=== PATIENT | female | born 1930 | race Caucasian/White ===

== ENCOUNTER 2017-02-26 12:14 | Observation (INO) | payer MEDICARE ==
[2017-02-26] MEDS ORDERED: SODIUM CHLORIDE 0.9% 1,000 ML IV STA (13:05)
[2017-02-26 13:43] LABS: Basophils # (A) 0.1 k/uL (0-0.2); Basophils % (A) 1 %; CHCM 32.9; Eosinophils # (A) 0.2 k/uL (0-0.7); Eosinophils % (A) 2 %; HCT 42.6 % (34.0-46.0); HDW 1.98; HGB 14.1 gm/dL (11.4-16.0); Luc # (Auto) 0.23; Luc % (Auto) 3; Lymphocytes # (A) 1.7 k/uL (1.0-4.8); Lymphocytes % (A) 19 %; MCH 32.4 pg (25.0-35.0); MCHC 33.2 g/dL (31.0-37.0); MCV 97.6 fL (80.0-100.0); Mean Platelet Volume 6.8; Monocytes # (A) 0.8 k/uL (0-1.0); Monocytes % (A) 9 %; Neutrophils # (A) 5.9 k/uL (1.3-7.7); Neutrophils % (A) 67 %; RBC 4.37 m/uL (3.80-5.40); RDW 13.1 % (11.5-15.5); WBC 8.8 k/uL (3.8-10.6); WBC (Perox) 8.67
[2017-02-26 13:51] LABS: INR 1.1 (<1.1); Partial Thromboplastin Time 23.1 sec (22.0-30.0)
--- NOTE | 2017-02-26 13:52 | XR ---
EXAMINATION TYPE: XR chest 2V DATE OF EXAM: 02/26/2017 COMPARISON: Chest x-ray November 12, 2010. HISTORY: Chest discomfort today. Chest pain. TECHNIQUE: Frontal and lateral views of the chest are obtained. FINDINGS: There is new patchy left basilar opacity on frontal view less well seen on lateral view. S ome chronic parenchymal changes redemonstrated bilaterally. No pleural effusion or pneumothorax is se en The cardiac silhouette size is enlarged with atherosclerotic and ectatic thoracic aorta. Degenerat benny change in both shoulders is present. Multilevel spurring in the spine is seen. IMPRESSION: Chronic parenchymal change and cardiomegaly with new suspicious patchy left basilar infi ltrate and/or atelectasis.
[2017-02-26 14:07] LABS: ALT 26 U/L (9-52); AST 36 U/L (14-36); Alkaline Phosphatase 67 U/L (38-126); Anion Gap 11 mmol/L; Blood Urea Nitrogen 14 mg/dL (7-17); Calcium 10.1 mg/dL (8.4-10.2); Carbon Dioxide 25 mmol/L (22-30); Chloride 104 mmol/L (98-107); Glucose 90 mg/dL (74-99); Magnesium 2.1 mg/dL (1.6-2.3); Non-African American GFR(MDRD) >60 (>60 ml/min/1.73 sqM); Sodium 140 mmol/L (137-145); Total Bilirubin 0.9 mg/dL (0.2-1.3); Total Protein 7.3 g/dL (6.3-8.2)
[2017-02-26 14:10] LABS: Potassium 4.5 mmol/L (3.5-5.1)
[2017-02-26 14:22] LABS: Creatine Kinase 139 U/L (30-135)
[2017-02-26 14:34] LABS: Troponin I <0.012 ng/mL (0.000-0.034)
[2017-02-26 14:42] LABS: Creatine Kinase MB 2.6 ng/mL (0.0-2.4)
[2017-02-26] MEDS ORDERED: LABETALOL 5 MG/ML VIAL MDV IVP STA (16:45)
[2017-02-26] MEDS ORDERED: NITROGLYCERIN SL TABS 0.4 MG TAB SUBLINGUAL PRN (16:51)
[2017-02-26] MEDS ORDERED: MORPHINE SULFATE 2 MG/ML SYRINGE IVP PRN (16:51)
--- NOTE | 2017-02-26 16:51 | ED ---
Chest Pain HPI - General Chief Complaint: Chest Pain Stated Complaint: chest pain Time Seen by Provider: 02/26/17 12:27 Source: patient Mode of arrival: wheelchair Limitations: no limitations - History of Present Illness Initial Comments: He presented with the chest pressure and a nontender chest she noticed that around 11:30 today it lasted for about 15-20 minutes then it resolved and she has no chest pain no shortness of breath no pleuritic chest pain she does have a history of COPD and heart disease. She said she is Gone on for Off-And-On for A Few Years That She Would Have This Pressure but Then He Goes away, devious system is unremarkable otherwise - Related Data Home Medications Medication Instructions Recorded Confirmed Aspirin 325 mg PO ONCE 02/26/17 02/26/17 Cholecalciferol [Vitamin D3] 1,000 unit PO DAILY 02/26/17 02/26/17 Omeprazole [Omeprazole] 20 mg PO DAILY 02/26/17 02/26/17 Quinapril HCl [Accupril] 5 mg PO DAILY 02/26/17 02/26/17 Allergies Allergy/AdvReac Type Severity Reaction Status Date / Time No Known Allergies Allergy Verified 02/26/17 12:48 Review of Systems ROS Statement: Those systems with pertinent positive or pertinent negative responses have been documented in the HPI. ROS Other: All systems not noted in ROS Statement are negative. EKG Findings - EKG Comments: EKG Findings:: EKG sinus rhythm ventricular rate is 76 MS interval is 184 QRS duration 74 QT/QTc is 396/445 review of this EKG does not reveal any ST elevation or ST depression Past Medical History Past Medical History: GERD/Reflux, Hypertension History of Any Multi-Drug Resistant Organisms: None Reported Past Surgical History: Hysterectomy Additional Past Surgical History / Comment(s): Foot surgery Past Psychological History: No Psychological Hx Reported Smoking Status: Never smoker Past Alcohol Use History: Rare Past Drug Use History: None Reported General Exam - General Exam Comments Initial Comments: General: The patient is awake and alert, in no distress, and does not appear acutely ill. Skin: Skin is warm and dry and no rashes or lesions are noted. Eye: Pupils are equal, round and reactive to light, extra-ocular movements are intact; there is normal conjunctiva bilaterally. Ears, nose, mouth and throat: There are moist mucous membranes and no oral lesions. Neck: The neck is supple, there is no tenderness or JVD. Cardiovascular: There is a regular rate and rhythm. No murmur, rub or gallop is appreciated. Respiratory: To auscultation bilateral, no wheezing no rhonchi no distress respiratory sunshine noticed Gastrointestinal: Soft, non-distended, non-tender abdomen without masses or organomegaly noted. There is no rebound or guarding present. Bowel sounds are unremarkable. Back: There is no tenderness to palpation in the midline. There is no obvious deformity. Musculoskeletal: Normal ROM, no tenderness, There is no pedal edema. There is no calf tenderness or swelling. No cords were appreciated. Neurological: CN II-XII intact, Cranial nerves III through XII are intact. There are no obvious motor or sensory deficits. Coordination appears grossly intact. Speech is normal. Psychiatric: Cooperative, appropriate mood & affect, normal judgment. Limitations: no limitations Course Vital Signs 02/26/17 02/26/17 02/26/17 12:16 13:35 15:21 Temperature 97.4 F L Pulse Rate 83 73 75 Respiratory 18 18 18 Rate Blood Pressure 184/79 178/79 174/86 O2 Sat by Pulse 98 97 98 Oximetry 02/26/17 16:38 Temperature Pulse Rate 77 Respiratory 18 Rate Blood Pressure 201/86 O2 Sat by Pulse 95 Oximetry , Her blood work and imaging were discussed with the patient is a question of small pneumonia or infiltrate chest pain had resolved before she came in with then noticed that her blood pressure was quite elevated she does take a small dose of JACQUIE inhibitor's and she did take him this morning and considering quite high blood pressure is greater than 200 systolic and ongoing chest pain off and on his recommended that we admit her for the cardiology consult she finally agreed AN eye on her blood pressure to the serial cardiac markers Critical Care Time Total Critical Care Time: 30 Critical Care Time: Her chest pain had resolved and troponin and EKG looks fine chest x-ray showed some pneumonia but blood pressure was quite elevated she a labetalol 20 mg IV since it was greater than 200 him a will consult cardiology and add another agent for hypertension and a she be on some antibiotics as well Disposition Clinical Impression: Chest pain, Pneumonia, Hypertension Disposition: ADMITTED IP TO THIS [facility] Condition: Good Referrals: Jaya Adams DO [Primary Care Provider] - 1-2 days
[2017-02-26] MEDS ORDERED: LEVOFLOXACIN 500 MG TAB PO STA (17:02)
[2017-02-26 19:21] LABS: Creatine Kinase 117 U/L (30-135)
[2017-02-26 19:34] LABS: Creatine Kinase MB 2.1 ng/mL (0.0-2.4); Troponin I <0.012 ng/mL (0.000-0.034)
[2017-02-26 20:02] VITALS: BMI 27.6
[2017-02-26] MEDS: METOPROLOL TARTRATE 25 MG TAB PO SCH (21:18)
[2017-02-27] MEDS ORDERED: ALPRAZolam 0.25 MG TAB PO PRN (00:17)
[2017-02-27] MEDS ORDERED: HYDROcodone/APAP 5-325MG 1 EACH TAB PO PRN (00:17)
[2017-02-27 01:20] LABS: Creatine Kinase 82 U/L (30-135)
[2017-02-27 01:23] LABS: Creatine Kinase MB 1.6 ng/mL (0.0-2.4); Troponin I <0.012 ng/mL (0.000-0.034)
[2017-02-27] MEDS ORDERED: PANTOPRAZOLE 40 MG TABLET PO SCH (07:30)
[2017-02-27 07:37] VITALS: RESP 16
[2017-02-27 07:41] LABS: Cholesterol 188 mg/dL (<200); HDL Cholesterol 56 mg/dL (40-60); Triglycerides 96 mg/dL (<150)
[2017-02-27] MEDS ORDERED: LISINOPRIL 5 MG TAB PO SCH (09:00)
[2017-02-27] MEDS ORDERED: ASPIRIN 325 MG TAB PO SCH (09:00)
[2017-02-27] MEDS: METOPROLOL TARTRATE 25 MG TAB PO SCH (11:02)
[2017-02-27 11:39] VITALS: BP 157/66; PULSE 79; TEMP 97.9
[2017-02-27] MEDS ORDERED: CHOLECALCIFEROL 1,000 UNIT TAB PO SCH (12:00)
--- NOTE | 2017-02-27 12:51 | HP ---
DATE OF ADMISSION: 02/26/2017 CHIEF COMPLAINT: Chest pain. HISTORY OF PRESENT ILLNESS: This is an 86-year-old woman with a past history of gastroesophageal reflux disease, hypertension, history of hysterectomy, bilateral foot surgery being followed by Dr. Adams in the outpatient setting was admitted with complaints of chest pain, which is felt in the anterior part of the chest, lasting for 15 to 20 minutes which is vague in character without any radiation without any shortness of breath. The patient came to [facility], blood pressure was found to be elevated up to the highest number was 201/86. Diastolic went up to 107. The patient also had a chest x-ray on admission which I reviewed personally and which showed infiltrate in the left lower lobe indicating the possibility of pneumonia also. The patient was admitted for further evaluation and treatment. Otherwise, her creatinine kinase is found to be 131. There is no history of fever, rigors or chills. No history of headache, loss of consciousness or seizures. PAST MEDICAL HISTORY: History of hypertension. History of gastroesophageal reflux disease. History of hysterectomy, bilateral foot surgery. Medications prior to admission include: 1. Vitamin D3 1000 daily. 2. Aspirin 320 mg daily. 3. Accupril 5 mg p.o. daily. 4. Omeprazole 50 mg daily . ALLERGIES: None. FAMILY HISTORY: No history of heart disease or strokes in the family. SOCIAL HISTORY: No history of smoking. No history of alcohol.. REVIEW OF SYSTEMS: ENT: Diminishing hearing. Diminished vision. CARDIOVASCULAR: As mentioned earlier. RESPIRATORY: As mentioned earlier. GI: No nausea. : No dysuria. Nervous system: No numbness or weakness. ALLERGY/IMMUNOLOGY: No asthma or hayfever. MUSCULOSKELETAL: As mentioned earlier. HEMATOLOGY/ONCOLOGY: No history of anemia. ENDOCRINE: No history of any diabetes or hypothyroidism. CONSTITUTIONAL: As mentioned earlier. DERMATOLOGY: Negative. RHEUMATOLOGY: Negative. PSYCHIATRY: As mentioned earlier. PHYSICAL EXAMINATION: The patient is alert and oriented times three. Pulse is 59, blood pressure 158/71, respirations 18, temperature normal, pulse ox 95% on 2 L. HEENT: Conjunctivae normal. Oral mucosa moist. NECK: No jugular venous distention. No carotid bruit. No lymph node enlargement. CARDIOVASCULAR: S1, S2 muffled. No S3, no S4. RESPIRATORY: Breath sounds diminished at the bases. A few scattered rhonchi, no crackles. ABDOMEN: Soft, nontender. No mass palpable. Legs: No edema. No swelling. Nervous system: Higher functions as mentioned. Moves all four limbs. No focal deficits. LYMPHATICS: No lymph nodes palpable in the neck, axillae or groin. SKIN: No ulcer, rash or bleeding. LABS: CBC within normal limits. BMP within normal limits. Creatinine kinase is 130. ASSESSMENT: 1. Chest pain possible unstable angina. 2. Uncontrolled hypertension. 3. Possible left lower lobe pneumonia. 4. Increased creatinine kinase with normal troponins. 5. Premature atrial contractions on the EKG. 6. History of hypertension. 7. History of gastroesophageal reflux disease. 8. History of hysterectomy. 9. Bilateral foot surgery. RECOMMENDATIONS AND DISCUSSION: This 86 -year-old woman presented with multiple complex medical issues. We will monitor the patient closely. Continue with current medications, rule out myocardial infarction. Monitor blood pressure closely. otherwise, continue to monitor. Also recommend a d-dimer is positive, CT of the chest may also be ordered. Otherwise, continue to monitor. Prognosis guarded. Further recommendations to follow. A copy of dictation is being forwarded to Dr. Adams who is the primary care physician. Dr. Shannon will be consulted. ZULEYKA
--- NOTE | 2017-02-27 16:40 | CONS ---
DATE OF CONSULTATION: This is an 86-year-old delightful lady who was doing some exercise at [employer] [place] and then came in yesterday with chest discomfort seems musculoskeletal. She did some work with her upper body as well. She does have history of hypertension, and also gastroesophageal reflux disease, reasonably active lady. Her pain seemed very atypical. Enzymes are normal. She is resting comfortably without symptoms. Her three sets of troponins are normal. She is resting comfortably without symptoms. D-dimer is also unremarkable. PAST MEDICAL HISTORY: 1. Hypertension. 2. Gastroesophageal reflux disease. MEDICATIONS: 1. Lisinopril. 2. Vitamin supplements. 3. Omeprazole. 4. Aspirin. ALLERGIES: None. REVIEW OF SYSTEMS: Unremarkable other than above-mentioned facts. After arrival to the emergency room, she was quite hypertensive, required IV labetalol. She is however, normotensive, resting comfortably without symptoms and her daughter is visiting with her. On examination, blood pressure is 124/70, pulse rate is 70 per minute, regular. HEENT: Unremarkable. Fundus was not examined by me. Neck is supple. There is no JVD. I do not hear a carotid bruit. Heart exam reveals S1 and S2 heard normally. There is a short systolic murmur at left sternal border. Lungs are clear. ABDOMEN: Soft, nontender. Lower extremities reveal normal pulses. No edema. Central nervous system is normal. EKG revealed sinus mechanism. No acute changes. Laboratory data revealed unremarkable troponins. IMPRESSION: 1. Atypical musculoskeletal chest pain. However, in this age group, coronary artery disease cannot be excluded, but I do not believe we are dealing with any acute ischemic syndrome type presentation. 2. Hypertension. 3. Gastroesophageal reflux disease. RECOMMENDATIONS: I am recommending that we discontinue IV, increase activity, and stress test can be performed as an outpatient and I will be happy to see her in the office. I am recommending that we add a small dose of beta siena, reduce aspirin to 81 mg daily, continue Lisinopril and she can be discharged later on today if she remains stable. Thank you very much for the consult.
[2017-02-27] MEDS ORDERED: LEVOFLOXACIN 500 MG TAB PO SCH (17:00)
[2017-02-28] MEDS ORDERED: ASPIRIN 81 MG CHEW PO SCH (09:00)
--- NOTE | 2017-02-28 21:38 | DS ---
DATE OF ADMISSION: 02/26/2017 DATE OF DISCHARGE: 02/27/2017 FINAL DIAGNOSES: 1. Chest pain, possibly musculoskeletal, rule out coronary artery disease, myocardial infarction ruled out. 2. Uncontrolled hypertension. 3. Possible left lower lobe pneumonia community acquired. 4. Increased creatinine kinase with normal troponins. 5. Premature atrial contractions on the EKG. 6. History of hypertension. 7. Gastroesophageal reflux disease. 8. History of hysterectomy. 9. Bilateral foot surgery. DISCHARGE DISPOSITION: The patient will be discharged in stable condition with guarded prognosis. Discharge cleared by cardiology. HISTORY OF PRESENT ILLNESS: This 86-year-old woman with a past medical history of multiple medical problems being followed by Dr. Adams in the outpatient setting was admitted with chest pain, myocardial infarction ruled out. Cardiology saw the patient and recommended outpatient follow-up. Otherwise, the patient also suspected continue with antibiotics and. On exam, vital signs stable. CARDIOVASCULAR: S1, S2 muffled. CENTRAL NERVOUS SYSTEM: No focal deficits. DISCHARGE ADVICE AND MEDICATIONS: 1. Diet is cardiac. 2. Activity limited until follow-up. 3. Follow up with Dr. Bijan Alvarenga in one week. 4. Follow-up with Dr. Adams in two to three days. 5. Medications are aspirin 320 mg daily. 6. Vitamin D3 1000 daily. 7. Levaquin 500 mg p.o. q.24 hours daily for 3 more days. 8. Lopressor 25 mg p.o. b.i.d. 9. Omeprazole 20 mg daily. 10. Accupril 5 mg p.o. daily. MTDD
== END 2017-02-27 15:00 | disposition home or self-care (01) ==
LOC: EC 12:14 → 3OBS 16:51
PROVIDERS: ADMIT Hospitalist; ATTEND Hospitalist
DX: R07.89 Other chest pain (principal); I10 Essential (primary) hypertension; R74.8 Abnormal levels of other serum enzymes; I49.1 Atrial premature depolarization; K21.9 Gastro-esophageal reflux disease without esophagitis; Z79.82 Long term (current) use of aspirin; Z79.899 Other long term (current) drug therapy
CPT/HCPCS: 99291; 96360; 96361 ×4; 36415; 93005; 85379; 83880; 80061; 80053; 82550 ×2; 82553 ×2; 83735; 84484 ×2; 85025; 85610; 85730; 71020; G0378 ×2

== ENCOUNTER 2018-08-12 09:07 | Emergency (ER) | payer MEDICARE ==
[2018-08-12 09:14] VITALS: RESP 16
[2018-08-12] MEDS ORDERED: SULFAMETHOX-TMP 800-160MG 1 EACH TAB PO STA (10:11)
[2018-08-12] MEDS ORDERED: IBUPROFEN 800 MG TAB PO STA (10:11)
[2018-08-12] MEDS ORDERED: CEPHALEXIN 500 MG CAP PO STA (10:11)
[2018-08-12] MEDS ORDERED: ACETAMINOPHEN TAB 500 MG TAB PO STA (10:11)
--- NOTE | 2018-08-12 10:13 | ED ---
Skin/Abscess/FB HPI - General Chief complaint: Skin/Abscess/Foreign Body Stated complaint: toe infection Time Seen by Provider: 08/12/18 09:25 Source: patient, RN notes reviewed, old records reviewed Mode of arrival: wheelchair Limitations: no limitations - History of Present Illness Initial comments: This is an 79-year-old female the ER for evaluation presented for evaluation of right third toe pain. Patient does have history of bad arthritis and has overlapping toes which have caused irritation with rubbing against the bottom of her shoes. Patient states the pain for a few days now, yesterday she had severe irritation the top of her toe with some scab formation and surrounding cellulitic changes or redness and tenderness. Patient has no history of diabetes, no history of peripheral vascular disease. No history of peripheral arterial disease. Patient has taken no medication for pain or modifying factors , pain is worse with touching and walking MD complaint: lesion -: week(s) Location: R foot (Middle toe) Severity: moderate Severity scale (1-10): 4 Quality: aching Consistency: constant Improves with: none Worsens with: none Context: none Associated symptoms: denies other symptoms Treatments Prior to Arrival: none - Related Data Home Medications Medication Instructions Recorded Confirmed Aspirin 325 mg PO ONCE 02/26/17 02/26/17 Cholecalciferol [Vitamin D3] 1,000 unit PO DAILY 02/26/17 02/26/17 Omeprazole 20 mg PO DAILY 02/26/17 02/26/17 Quinapril HCl [Accupril] 5 mg PO DAILY 02/26/17 02/26/17 Previous Rx's Medication Instructions Recorded Levofloxacin [Levaquin] 500 mg PO Q24H #3 tab 02/27/17 Metoprolol Tartrate [Lopressor] 25 mg PO BID #60 tab 02/27/17 Cephalexin [Keflex] 500 mg PO Q6HR #40 cap 08/12/18 Naproxen [Naprosyn] 500 mg PO Q12HR PRN #30 tab 08/12/18 Sulfamethox-Tmp 800-160Mg [Bactrim 1 tab PO Q12HR #20 tab 08/12/18 DS 800-160 mg] Allergies Allergy/AdvReac Type Severity Reaction Status Date / Time No Known Allergies Allergy Verified 08/12/18 09:14 Review of Systems ROS Statement: Those systems with pertinent positive or pertinent negative responses have been documented in the HPI. ROS Other: All systems not noted in ROS Statement are negative. Past Medical History Past Medical History: GERD/Reflux, Hypertension History of Any Multi-Drug Resistant Organisms: None Reported Past Surgical History: Hysterectomy Additional Past Surgical History / Comment(s): Bilateral Foot surgery Past Anesthesia/Blood Transfusion Reactions: No Reported Reaction Past Psychological History: No Psychological Hx Reported Smoking Status: Never smoker Past Alcohol Use History: Rare Past Drug Use History: None Reported General Exam Limitations: no limitations General appearance: alert, in no apparent distress Head exam: Present: atraumatic, normocephalic, normal inspection Eye exam: Present: normal appearance, PERRL, EOMI. Absent: scleral icterus, conjunctival injection, periorbital swelling ENT exam: Present: normal exam, mucous membranes moist Neck exam: Present: normal inspection. Absent: tenderness, meningismus, lymphadenopathy Respiratory exam: Present: normal lung sounds bilaterally. Absent: respiratory distress, wheezes, rales, rhonchi, stridor Cardiovascular Exam: Present: regular rate, normal rhythm, normal heart sounds. Absent: systolic murmur, diastolic murmur, rubs, gallop, clicks GI/Abdominal exam: Present: soft, normal bowel sounds. Absent: distended, tenderness, guarding, rebound, rigid Extremities exam: Present: normal inspection, full ROM, normal capillary refill , other (Right middle toe does have pressure type wound, ulcer to top of toe, mild erythema surrounding with tenderness, no drainage). Absent: tenderness, pedal edema, joint swelling, calf tenderness Back exam: Present: normal inspection Neurological exam: Present: alert, oriented X3, CN II-XII intact Psychiatric exam: Present: normal affect, normal mood Skin exam: Present: warm, dry, intact, normal color. Absent: rash Course Vital Signs 08/12/18 09:11 Temperature 98 F Pulse Rate 85 Respiratory 16 Rate Blood Pressure 148/69 O2 Sat by Pulse 97 Oximetry - Reevaluation(s) Reevaluation #1: 08/12/18 10:52 Medical record is reviewed Reevaluation #2: 08/12/18 10:52 Patient encouraged to return to emergency room if redness and erythema starts to spread up her foot into her leg Medical Decision Making - Medical Decision Making 79-year-old female the ER with pressure ulcer to foot, will be put on prescribed antibiotics and mild pain control, encouraged to continue acute wound care and patient can be discharged home - Radiology Data Radiology results: report reviewed (X-ray foot is nonspecific secondary to bone demineralization no fracture), image reviewed Disposition Clinical Impression: Toe ulcer, Cellulitis of toe of right foot Disposition: HOME SELF-CARE Condition: Good Instructions: Cellulitis (ED) Prescriptions: Cephalexin [Keflex] 500 mg PO Q6HR #40 cap Naproxen [Naprosyn] 500 mg PO Q12HR PRN #30 tab PRN Reason: Pain Sulfamethox-Tmp 800-160Mg [Bactrim DS 800-160 mg] 1 tab PO Q12HR #20 tab Is patient prescribed a controlled substance at d/c from ED?: No Referrals: Nila Junior MD [Primary Care Provider] - 1-2 days
--- NOTE | 2018-08-12 10:38 | XR ---
EXAMINATION TYPE: XR foot complete RT DATE OF EXAM: 08/12/2018 CLINICAL HISTORY: Pain, redness, swelling, and black second toe TECHNIQUE: Frontal, lateral, and oblique images of the right foot are obtained. COMPARISON: None FINDINGS: Osseous structures are demineralized which is noted to lower radiographic sensitivity. No a cute fracture is clearly seen. There is mild to moderate spurring and narrowing midfoot level seen be st on lateral view. There is old fracture deformity first metatarsal. There is suspected old fracture deformity distal second metatarsal head. There is marked flexion in the toes making evaluation at th is level suboptimal. There is varus positioning distal third through fifth toes making evaluation at this level also suboptimal. Osseous overlap is suspicious for subluxation second metatarsophalangeal joint, correlate clinically. No suspicious cortical destruction or periosteal reaction is seen. Mild to moderate diffuse subcutaneous edema is noted. IMPRESSION: As above.
[2018-08-12 11:10] VITALS: BP 147/70; PULSE 78; TEMP 97.8
== END 2018-08-12 11:10 | disposition home or self-care (01) ==
LOC: EC 09:07
DX: L03.031 Cellulitis of right toe (principal); L97.519 Non-pressure chronic ulcer of other part of right foot with unspecified severity; M81.0 Age-related osteoporosis without current pathological fracture; I10 Essential (primary) hypertension; K21.9 Gastro-esophageal reflux disease without esophagitis; M19.90 Unspecified osteoarthritis, unspecified site; Z79.82 Long term (current) use of aspirin; Z79.899 Other long term (current) drug therapy; Z98.890 Other specified postprocedural states
CPT/HCPCS: 99284

== ENCOUNTER 2019-04-07 12:40 | Emergency (ER) | payer MEDICARE ==
[2019-04-07] MEDS ORDERED: SODIUM CHLORIDE 0.9% 500 ML 500 ML IV STA (13:12)
[2019-04-07 14:08] LABS: Basophils # (A) 0.1 k/uL (0-0.2); Basophils % (A) 1 %; Eosinophils # (A) 0.1 k/uL (0-0.7); Eosinophils % (A) 1 %; HCT 41.2 % (34.0-46.0); HGB 13.6 gm/dL (11.4-16.0); Lymphocytes # (A) 1.7 k/uL (1.0-4.8); Lymphocytes % (A) 19 %; MCH 31.7 pg (25.0-35.0); MCHC 33.1 g/dL (31.0-37.0); MCV 95.8 fL (80.0-100.0); Mean Platelet Volume 7.4; Monocytes % (A) 11 %; Neutrophils # (A) 5.9 k/uL (1.3-7.7); Neutrophils % (A) 65 %; Platelet Count 356 k/uL (150-450); RDW 14.4 % (11.5-15.5); WBC 9.1 k/uL (3.8-10.6)
[2019-04-07 14:23] LABS: ALT 18 U/L (9-52); AST 27 U/L (14-36); African American GFR (CKD) >90 (>60 ml/min/1.73 sqM); Albumin 4.3 g/dL (3.5-5.0); Alkaline Phosphatase 65 U/L (38-126); Anion Gap 10 mmol/L; Blood Urea Nitrogen 10 mg/dL (7-17); Calcium 9.6 mg/dL (8.4-10.2); Carbon Dioxide 25 mmol/L (22-30); Chloride 104 mmol/L (98-107); Glucose 98 mg/dL (74-99); Lipase 144 U/L (23-300); Magnesium 2.4 mg/dL (1.6-2.3); Phosphorus 3.7 mg/dL (2.5-4.5); Potassium 4.4 mmol/L (3.5-5.1); Sodium 139 mmol/L (137-145); Total Bilirubin 0.6 mg/dL (0.2-1.3); Total Protein 6.9 g/dL (6.3-8.2)
--- NOTE | 2019-04-07 15:05 | CT ---
EXAMINATION TYPE: CT abdomen pelvis w con DATE OF EXAM: 04/07/2019 COMPARISON: None HISTORY: Right lower quadrant pain. CT DLP: 859.2 mGycm Automated exposure control for dose reduction was used. TECHNIQUE: Helical acquisition of images was performed from the lung bases through the pelvis. CONTRAST: Performed without Oral Contrast and with IV Contrast, patient injected with 100 mL of Isovue 300. FINDINGS: There is patchy infiltrate and atelectasis in both lower lobes. There is some rounded 2 cm consolidat ion in the left lower lobe. There is no pleural effusion. Heart size is normal. There is no pericardi al effusion. There is small hiatal hernia. The liver spleen pancreas gallbladder appear normal. Bile ducts are not dilated. There is no adrenal mass. There is normal contrast opacification of the kidneys. There is no hydronephrosis. Ureters are not di lated. There is no retroperitoneal adenopathy. There is atheromatous change in the abdominal aorta. There are numerous diverticula in the sigmoid colon. Bladder distends smoothly. There is no free flui d in the pelvis. There is no evidence of free air. There is no sign of a bowel obstruction. There are spondylotic changes in the thoracic and lumbar spine. There is no compression fracture. Bony pelvis appears intact. Appendix is not definitely seen. There is no sign of thickened appendix. Small bowel measures up to 2.5 cm. No sign of bowel obstruction. IMPRESSION: THERE IS COLONIC DIVERTICULOSIS WITHOUT EVIDENCE OF DIVERTICULITIS. NO SIGN OF ACUTE ABDOMEN AND PELV IS. APPENDIX NOT SEEN. NO SIGN OF APPENDICITIS.
[2019-04-07 15:18] LABS: Appearance,Urine Clear (Clear); Bilirubin,Urine Negative (Negative); Blood,Urine Negative (Negative); Color,Urine Colorless; Glucose,Urine (UA) Negative (Negative); Ketones,Urine Negative (Negative); Leukocyte Esterase,Urine Negative (Negative); Nitrite,Urine Negative (Negative); Protein,Urine Negative (Negative); Specific Gravity,Urine 1.003 (1.001-1.035); Urobilinogen,Urine <2.0 mg/dL (<2.0)
--- NOTE | 2019-04-07 15:33 | XR ---
EXAMINATION TYPE: XR chest 2V DATE OF EXAM: 04/07/2019 COMPARISON: 02/26/2017 HISTORY: Right lower quadrant pain. TECHNIQUE: Frontal and lateral views of the chest are obtained. FINDINGS: Heart is normal. There is some infiltrate at the left cardiac border in the left lower lob e. The other lung cain are clear. Thoracic aorta is atheromatous. Bony thorax is intact. IMPRESSION: There is a mild pneumonia or scarring left lower lobe improved compared to last exam. No rmal heart.
[2019-04-07] MEDS ORDERED: AZITHROMYCIN 500 MG TAB PO STA (15:35)
--- NOTE | 2019-04-07 15:42 | ED ---
General Adult HPI - General Chief complaint: Abdominal Pain Stated complaint: Abd pain Time Seen by Provider: 04/07/19 13:11 Source: patient, RN notes reviewed, old records reviewed Mode of arrival: ambulatory Limitations: no limitations - History of Present Illness Initial comments: 88-year-old female patient no pertinent past history presents to ED with chief complaint of right lower quadrant abdominal pain. Patient worsens been ongoing for 2 days. Denies any other complaints. Denies any chest pain, shortness of breath, cough congestion, fever chills, nausea vomiting or diarrhea. Patient was seen at urgent care today where they did a KUB and a urinalysis which was reportedly normal. Patient reports that abdominal pain is feeling much improved to last night. Patient denies any other complaints. Systemic: Pt denies fatigue, fever/chills, rash. Pt denies weakness, night sweats, weight loss. Neuro: Pt denies headache, visual disturbances, syncope or pre-syncope. HEENT: Pt denies ocular discharge or irritation, otalgia, rhinorrhea, phary ngitis or notable lymphadenopathy. Cardiopulmonary: Pt denies chest pain, SOB, heart palpitations, dyspnea on exertion. Abdominal/GI: Pt denies n/v/d. : Pt denies dysuria, burning w/ urination, frequency/urgency. Denies new onset urinary or bowel incontinence. MSK: Pt denies myalgia, loss of strength or function in extremities. Neuro: Pt denies new onset weakness, paresthesias. - Related Data Home Medications Medication Instructions Recorded Confirmed Omeprazole 20 mg PO SUWEFR 02/26/17 04/07/19 Quinapril HCl [Accupril] 5 mg PO DAILY 02/26/17 04/07/19 ALPRAZolam [Xanax] 0.25 mg PO HS 04/07/19 04/07/19 Aspirin EC [Ecotrin Low Dose] 81 mg PO DAILY 04/07/19 04/07/19 Calcium Carbonate [Calcium] 600 mg PO BID 04/07/19 04/07/19 Docusate [Colace] 100 mg PO MOWEFR 04/07/19 04/07/19 Polyethylene Glycol 3350 [Miralax] 17 gm PO DAILY PRN 04/07/19 04/07/19 Sennosides/Docusate Sodium 1 tab PO SUTUTHSA 04/07/19 04/07/19 [Senna-S Laxative Tablet] Previous Rx's Medication Instructions Recorded Azithromycin [Zithromax Z-pack] 0 mg PO DIRECTED #6 tab 04/07/19 Allergies Allergy/AdvReac Type Severity Reaction Status Date / Time No Known Allergies Allergy Verified 04/07/19 15:30 Review of Systems ROS Statement: Those systems with pertinent positive or pertinent negative responses have been documented in the HPI. ROS Other: All systems not noted in ROS Statement are negative. Past Medical History Past Medical History: GERD/Reflux, Hypertension History of Any Multi-Drug Resistant Organisms: None Reported Past Surgical History: Hysterectomy Additional Past Surgical History / Comment(s): Bilateral Foot surgery Past Anesthesia/Blood Transfusion Reactions: No Reported Reaction Past Psychological History: No Psychological Hx Reported Smoking Status: Never smoker Past Alcohol Use History: Rare Past Drug Use History: None Reported General Exam - General Exam Comments Initial Comments: Constitutional: NAD, AOX3, Pt has pleasant affect. HEENT: NC/AT, trachea midline, neck supple, no lymphadenopathy. Posterior pharynx non erythematous, without exudates. External ears appear normal, without discharge. Mucous membranes moist. Eyes PERRLA, EOM intact. There is no scleral icterus. No pallor noted. Cardiopulmonary: RRR, no murmurs, rubs or gallops, no JVD noted. Lungs CTAB in anterior and posterior cain. No peripheral edema. Abdominal exam: Abdomen soft and non-distended. Abdomen very mildly tender to palpation in right lower quadrant. No guarding no rigidity. Bowel sounds active in LLQ. No hepatosplenomegaly. No ecchymosis Neuro: CN II-XII grossly intact. No nuchal rigidity. No raccon eyes, no chapman sign, no hemotympanum. No cervical spinal tenderness. MSK: No posterior calf tenderness bilaterally, homans sign negative bilaterally. Posterior tibialis and radial pulse +2 bilaterally. Sensation intact in upper and lower extremities. Full active ROM in upper and lower extremities, 5/5 stregnth. Limitations: no limitations Course Vital Signs 04/07/19 04/07/19 12:48 15:05 Temperature 97.7 F Pulse Rate 79 78 Respiratory 18 18 Rate Blood Pressure 154/74 139/69 O2 Sat by Pulse 98 98 Oximetry Medical Decision Making - Medical Decision Making 88-year-old female patient no pertinent past history presents to ED with chief complaint of right lower quadrant abdominal pain. Patient worsens been ongoing for 2 days. Denies any other complaints. Denies any chest pain, shortness of breath, cough congestion, fever chills, nausea vomiting or diarrhea. Patient was seen at urgent care today where they did a KUB and a urinalysis which was reportedly normal. Patient reports that abdominal pain is feeling much improved to last night. Patient denies any other complaints. Pt VSS, afebrile. Physical exam displayed: Abdomen soft and non-distended. Abdomen very mildly tender to palpation in right lower quadrant. No guarding no rigidity. Laboratory investigations are non-impressive CBC, CMP, UA. Lipase negative, lactic acid within normal limits. CTM pelvis displayed colonic diverticulosis without evidence of diverticulitis. No significant acute abdomen and pelvis, appendix not seen, no sign of appendicitis. CT did also displayed patchy infiltrate and atelectasis in both lower lobes. Follow-up chest x-ray revealed a mild pneumonia or scarring in left lower lobe improved compared to last exam. Patient does not have any cough or fever. Patient will be placed on azithromycin, will follow up with primary care provider and Dr. Adams for continued evaluation. Case discussed with: Dr. Resendiz. - Lab Data Result diagrams: 04/07/19 13:46 04/07/19 13:46 Lab Results 04/07/19 04/07/19 04/07/19 Range/Units 13:46 13:46 15:00 WBC 9.1 (3.8-10.6) k/uL RBC 4.30 (3.80-5.40) m/uL Hgb 13.6 (11.4-16.0) gm/dL Hct 41.2 (34.0-46.0) % MCV 95.8 (80.0-100.0) fL MCH 31.7 (25.0-35.0) pg MCHC 33.1 (31.0-37.0) g/dL RDW 14.4 (11.5-15.5) % Plt Count 356 (150-450) k/uL Neutrophils % 65 % Lymphocytes % 19 % Monocytes % 11 % Eosinophils % 1 % Basophils % 1 % Neutrophils # 5.9 (1.3-7.7) k/uL Lymphocytes # 1.7 (1.0-4.8) k/uL Monocytes # 1.0 (0-1.0) k/uL Eosinophils # 0.1 (0-0.7) k/uL Basophils # 0.1 (0-0.2) k/uL Sodium 139 (137-145) mmol/L Potassium 4.4 (3.5-5.1) mmol/L Chloride 104 (98-107) mmol/L Carbon Dioxide 25 (22-30) mmol/L Anion Gap 10 mmol/L BUN 10 (7-17) mg/dL Creatinine 0.63 (0.52-1.04) mg/dL Est GFR (CKD-EPI)AfAm >90 (>60 ml/min/1.73 sqM) Est GFR (CKD-EPI)NonAf 80 (>60 ml/min/1.73 sqM) Glucose 98 (74-99) mg/dL Plasma Lactic Acid Neil 1.1 (0.7-2.0) mmol/L Calcium 9.6 (8.4-10.2) mg/dL Phosphorus 3.7 (2.5-4.5) mg/dL Magnesium 2.4 H (1.6-2.3) mg/dL Total Bilirubin 0.6 (0.2-1.3) mg/dL AST 27 (14-36) U/L ALT 18 (9-52) U/L Alkaline Phosphatase 65 (38-126) U/L Total Protein 6.9 (6.3-8.2) g/dL Albumin 4.3 (3.5-5.0) g/dL Lipase 144 (23-300) U/L Urine Color Urine Appearance (Clear) Urine pH (5.0-8.0) Ur Specific [place] (1.001-1.035) Urine Protein (Negative) Urine Glucose (UA) (Negative) Urine Ketones (Negative) Urine Blood (Negative) Urine Nitrite (Negative) Urine Bilirubin (Negative) Urine Urobilinogen (<2.0) mg/dL Ur Leukocyte Esterase (Negative) 04/07/19 Range/Units 15:00 WBC (3.8-10.6) k/uL RBC (3.80-5.40) m/uL Hgb (11.4-16.0) gm/dL Hct (34.0-46.0) % MCV (80.0-100.0) fL MCH (25.0-35.0) pg MCHC (31.0-37.0) g/dL RDW (11.5-15.5) % Plt Count (150-450) k/uL Neutrophils % % Lymphocytes % % Monocytes % % Eosinophils % % Basophils % % Neutrophils # (1.3-7.7) k/uL Lymphocytes # (1.0-4.8) k/uL Monocytes # (0-1.0) k/uL Eosinophils # (0-0.7) k/uL Basophils # (0-0.2) k/uL Sodium (137-145) mmol/L Potassium (3.5-5.1) mmol/L Chloride (98-107) mmol/L Carbon Dioxide (22-30) mmol/L Anion Gap mmol/L BUN (7-17) mg/dL Creatinine (0.52-1.04) mg/dL Est GFR (CKD-EPI)AfAm (>60 ml/min/1.73 sqM) Est GFR (CKD-EPI)NonAf (>60 ml/min/1.73 sqM) Glucose (74-99) mg/dL Plasma Lactic Acid Neil (0.7-2.0) mmol/L Calcium (8.4-10.2) mg/dL Phosphorus (2.5-4.5) mg/dL Magnesium (1.6-2.3) mg/dL Total Bilirubin (0.2-1.3) mg/dL AST (14-36) U/L ALT (9-52) U/L Alkaline Phosphatase (38-126) U/L Total Protein (6.3-8.2) g/dL Albumin (3.5-5.0) g/dL Lipase (23-300) U/L Urine Color Colorless Urine Appearance Clear (Clear) Urine pH 7.0 (5.0-8.0) Ur Specific [place] 1.003 (1.001-1.035) Urine Protein Negative (Negative) Urine Glucose (UA) Negative (Negative) Urine Ketones Negative (Negative) Urine Blood Negative (Negative) Urine Nitrite Negative (Negative) Urine Bilirubin Negative (Negative) Urine Urobilinogen <2.0 (<2.0) mg/dL Ur Leukocyte Esterase Negative (Negative) Disposition Clinical Impression: Abdominal pain, Pneumonia Disposition: HOME SELF-CARE Condition: Stable Instructions (If sedation given, give patient instructions): Abdominal Pain (ED) Additional Instructions: Patient to adhere to previously discussed treatment plan and will take medication(s) as directed. Patient to follow up with PCP in 1-2 days. Patient to return to ED if symptoms do not improve. Follow up with primary care provider tomorrow, take medication as directed, return to ER if condition worsens. . Prescriptions: Azithromycin [Zithromax Z-pack] 0 mg PO DIRECTED #6 tab Is patient prescribed a controlled substance at d/c from ED?: No Referrals: Nila Junior MD [Primary Care Provider] - 1-2 days Jaya Adams DO [Doctor of Osteopathic Medicine] - 1-2 days
[2019-04-07 16:02] VITALS: BP 136/70; PULSE 72; RESP 16; TEMP 98.1
== END 2019-04-07 16:21 | disposition home or self-care (01) ==
LOC: EC 12:40
DX: J18.1 Lobar pneumonia, unspecified organism (principal); R10.31 Right lower quadrant pain; K57.30 Diverticulosis of large intestine without perforation or abscess without bleeding; J98.11 Atelectasis; I10 Essential (primary) hypertension; K21.9 Gastro-esophageal reflux disease without esophagitis; Z79.82 Long term (current) use of aspirin; Z79.899 Other long term (current) drug therapy
CPT/HCPCS: 36415; 80053; 83605; 83690; 83735; 84100; 85025; 81003; 71046; 74177; 99285; 96360; Q9967